=== PATIENT | female | born 1955 | race Caucasian/White ===

== ENCOUNTER 2019-06-06 17:46 | Inpatient (IN) | payer MEDICARE ==
[~2019-06-06] VITALS: Ht 160 cm; Wt 127.0 kg
[~2019-06-06 17:46] MED LIST: ACET325 PO; ACET500 PO; ACID REDUCER 1150 MG PO; AMBIEN; ASCO500; ASCO500 PO; Acidophilus La100 GM PO; Advil200 M1; Aldactone50 MG PO; Ambien5 MG PO; B Complex #11 EACH PO; BUDE10.22 INH; CALCA500CH PO; CALCIUM PO; CARB200 PO; CARB200ER; CARB200ER PO; CHOL10002 PO; CLON.1 PO; CREON DR 3,0001 EACH PO; CYCL10 PO; Culturelle1 CAP; DIPATR PO; ERGO400 PO; ESCI10; Eye Allergy Rel15 ML BOTHEYES; FISH1000 PO; FLONASE ALLERG9.9 ML; FURO20; FURO20 PO; FURO40; Flonase 0.05% N16 GM; HYDACE5 PO; HYDMOR2 PO; IBUP200; IBUP400; IBUP400 PO; IBUP800 PO; Inderal 20 mg T20 MG PO; KEPPRA250 MG PO; LASIX; LAVAP17G PO; LEVE500 PO; LISI20; LISI20 PO; LOSA25 PO; LOSA50 PO; MAGGLU250 PO; MORP15ER; MORP15ER PO; MULVITA; MULVITMIND PO; Magnesium500 M1 PO; Magnesium500 MG PO; Multivitamin1 EAC1 PO; NADO20; NADO20 PO; NADOL PO; NADOLOL; NADOLOL PO; Natural Vita400 UNIT PO; OMEP20ER PO; OXYACE5T PO; OXYC5; PHAZYME250 MG PO; PHENY100ER PO; POTASSIUM CHLORIDE PO; POTCHL10ER PO; POTCHL20ER PO; PREG75 PO; PROBIOTIC1 EAC1 PO; PROM25; PROM25 PO; Prinivil10 MG PO; RANI150 PO; Refresh Eye Dr1 EACH BOTHEYES; SIMETHICONE; SODCHL.65S; SODCHL1 PO; SPIR25; SPIR25 PO; SPIR50; SPIR50 PO; TEGRETOL; THIA100; TRAZ100 PO; TRAZ50 PO; TRAZONE; VITAMIN B12 PO; VITAMIN E PO; ZOLP10 PO; ZOLP5 PO
[2019-06-06 18:48] LABS: BASOPHILS ABSOLUTE AUTO 0.03 K/mm3 (0.00-0.23); BASOPHILS PERCENT AUTO 0 % (0-2); EOSINOPHILS ABSOLUTE AUTO 0.19 K/mm3 (0.00-0.68); EOSINOPHILS PERCENT AUTO 3 % (0-6); Hematocrit 22.9 % (33.0-51.0); Hemoglobin 7.4 g/dL (11.5-16.0); IMMATURE GRAN ABSOLUTE AUTO 0.02 K/mm3 (0.00-0.10); IMMATURE GRAN PERCENT AUTO 0 % (0-1); LYMPHOCYTES ABSOLUTE AUTO 2.31 K/mm3 (0.84-5.20); LYMPHOCYTES PERCENT AUTO 31 % (21-46); MONOCYTES ABSOLUTE AUTO 1.62 K/mm3 (0.16-1.47); MONOCYTES PERCENT AUTO 22 % (4-13); Mean Corpuscular HGB 31.9 pg (26.0-34.0); Mean Corpuscular HGB Conc 32.3 g/dL (31.5-36.5); Mean Corpuscular Volume 99 fL (80-100); NEUTROPHILS ABSOLUTE AUTO 3.26 K/mm3 (1.96-9.15); NEUTROPHILS PERCENT AUTO 44 % (41-73); NRBC ABSOLUTE 0.03 K/mm3 (0.00-0.02); NRBC Auto 0.4 /100 WBC (0.0-0.2); Platelet Count 162 K/mm3 (150-400); RDW Coefficient Variation 16.8 % (11.7-14.2); RDW Standard Deviation 59.9 fL (35.1-46.3); Red Blood Cell Count 2.32 M/mm3 (3.80-5.20); White Blood Cell Count 7.43 K/mm3 (4.00-11.30)
[2019-06-06 18:59] LABS: Albumin, Blood 2.6 g/dL (3.4-5.0); Albumin/Globulin Ratio 0.8 (0.8-1.8); Bilirubin, Total 1.2 mg/dL (0.1-1.0); Bun/Creatinine Ratio 26.7 (12.0-20.0); Calcium, Blood 8.5 mg/dL (8.5-10.1); Creatinine, Blood 1.01 mg/dL (0.40-1.00); Globulin, Blood 3.1 g/dL (2.2-4.0); Potassium, Blood 3.3 mmol/L (3.5-5.5); Total Protein, Blood 5.7 g/dL (6.4-8.2)
--- NOTE | 2019-06-07 01:13 | NUR ---
PT ADMITTED TO THE THE ROOM. BLOOD INFUSING IN LEFT AC. RESP UNLABORED, VSS. PT IS A&O X4, THE PT IS VERY ANXIOUS, DEMANDING AND INPATIENT. REASSURANCE AND EDUCATION ABOUT ADMISION PROCESS AND CURRENT ILLNESS WAS PROVIDED. PT'S IS AT THE BEDSIDE. LINENS WERE PROVIDED FOR HIM TO SLEEP AT THE BEDSIDE. PT CONTINUES TO C/O ABD PAIN. HOSPITALIST WILL BE NOTIFIED. CALL LIGHT IN REACH.
[2019-06-07 06:23] LABS: BASOPHILS ABSOLUTE AUTO 0.04 K/mm3 (0.00-0.23); BASOPHILS PERCENT AUTO 1 % (0-2); EOSINOPHILS ABSOLUTE AUTO 0.12 K/mm3 (0.00-0.68); EOSINOPHILS PERCENT AUTO 2 % (0-6); Hematocrit 26.5 % (33.0-51.0); Hemoglobin 8.5 g/dL (11.5-16.0); IMMATURE GRAN ABSOLUTE AUTO 0.02 K/mm3 (0.00-0.10); IMMATURE GRAN PERCENT AUTO 0 % (0-1); LYMPHOCYTES ABSOLUTE AUTO 1.67 K/mm3 (0.84-5.20); LYMPHOCYTES PERCENT AUTO 27 % (21-46); MONOCYTES ABSOLUTE AUTO 1.13 K/mm3 (0.16-1.47); MONOCYTES PERCENT AUTO 19 % (4-13); Mean Corpuscular HGB 31.4 pg (26.0-34.0); Mean Corpuscular HGB Conc 32.1 g/dL (31.5-36.5); Mean Corpuscular Volume 98 fL (80-100); Mean Platelet Volume 10.8 fL (9.1-12.4); NEUTROPHILS ABSOLUTE AUTO 3.14 K/mm3 (1.96-9.15); NEUTROPHILS PERCENT AUTO 51 % (41-73); NRBC ABSOLUTE 0.02 K/mm3 (0.00-0.02); NRBC Auto 0.3 /100 WBC (0.0-0.2); Platelet Count 124 K/mm3 (150-400); RDW Coefficient Variation 16.7 % (11.7-14.2); RDW Standard Deviation 58.7 fL (35.1-46.3); Red Blood Cell Count 2.71 M/mm3 (3.80-5.20); White Blood Cell Count 6.12 K/mm3 (4.00-11.30)
--- NOTE | 2019-06-07 06:36 | NUR ---
SUMMARY 1 UNIT PRBC INFUSED. PT DENIES ANY S/S OF TRANSFUSION REACTIONS. BP HAS INCREASED SLIGHTLY. PT CONTINUES TO BE A&O X4, ANXIOUS AND DEMANDING. PAIN MEDICATED WITH 25 MCG IV FENTANYL X2 PER PT REQUEST. PT DENIES NAUSEA. SHE CONTINUES TO PASS FLATUS. NS INFUSING @ 100 ML/HR. PT WAS PLACED ON 2 L O2 PER NC FOR O2 SATS AROUND 88% TO 92% DEPENDING ON PT'S ANXIETY LEVEL. REASSURANCE AND EDUCATION PROVIDED FREQUENTLY TO ASSIST IN CALMING PT. PT ADVISED TO CALL FOR ASSISTANCE PRIOR TO GETTING OOB. PT'S IS AT THE BEDSIDE, PT STATES HE HAS BEGINNING SIGNS OF DEMENTIA AND REQUIRES LOT'S OF CARE. PT IS ORDERING STAFF TO CARE FOR HIM. CALL LIGHT IS IN REACH. WCTM AND REPORT TO DAY RN
[2019-06-07 06:43] LABS: Anion Gap 6 mmol/L (6-16); Blood Urea Nitrogen 27 mg/dL (8-24); Bun/Creatinine Ratio 28.8 (12.0-20.0); CO2, Blood 26 mmol/L (21-32); Chloride, Blood 107 mmol/L (98-108); Creatinine, Blood 0.94 mg/dL (0.40-1.00); Glomerular Filtration Rate >60 (60-); Glucose, Blood 154 mg/dL (70-99); Potassium, Blood 3.8 mmol/L (3.5-5.5); Sodium, Blood 139 mmol/L (136-145)
--- NOTE | 2019-06-07 08:00 | NUR ---
PT IS VERY ANXIOUS, STATES SHE CAN'T BREATH, STATES SHE IS PANIKING, RT IN ROOM WE WERE ABLE TO CALM HER, SHE IS CURRENTLY ON 5 LITERS 02 VIA N/C, LUNGS ARE CLEAR IN UPPER [place], DIM IN BASES, RESP EVEN AND UNLABORED AFTER SHE CALMED DOWN, NO COUGH NOTED, HRR, MONITOR IN PLACE RUNNING SR PER MONITOR, SEE STRIP, TRACE EDEMA NOTED TO B/L LE, PPP FAINT, CAP REFILL <3 SEC, VS STABLE, AFEBRILE, IV SITES ARE CLEAR AND PATENT, TO LEFT AC AND LEFT FA, TURNED NS TO TKO ORDERED, BTX4, ABD FLAT SOFT TENDER IN EPIGASTRIC AREA, HAS BEEN RECIEVING FENTANYL FOR PAIN MGMT, VOIDS WITHOUT DIFF, SKIN C/W/D/, LEEANN YUSUF, CALL LIGHT IN REACH. CALLED IN GI CONSULT TO ANSWERING SERVICE AT 0730.
--- NOTE | 2019-06-07 14:10 | NUR ---
INTO ICU 15 FOR PROCEDURE. ASSESSMENT STARTED
[2019-06-07 14:32] LABS: Hematocrit 26.3 % (33.0-51.0); Hemoglobin 8.6 g/dL (11.5-16.0)
--- NOTE | 2019-06-07 15:33 | NUR ---
PT HAD AN EGD, NO SOURCE OF BLEEDING FOUND, PT WAKING UP, SPOUCE SITTING OUTSIDE HER ROOM READING A PAPER, HAS WONDERED A FEW TIMES AND COULD NOT FIND HIS WAY BACK. VS A BIT LOW BUT IS STILL WAKING. CONTINUES ON 5 LITERS 02 VIA N/C. CALL LIGHT IN REACH.
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
[2019-06-07 18:15] LABS: Hemoglobin 8.6 g/dL (11.5-16.0)
--- NOTE | 2019-06-07 23:52 | NUR ---
SANDOSTATIN RATE CHANGE RATE CHANGE TO 12.5 PER ORDERS AT 2257.
--- NOTE | 2019-06-08 02:28 | NUR ---
UPDATE Pt with second panic attack of the shift. Pt with severe anxiety, unable to calm self without direction from RN. Pt redirectable, follows directions. Pt instructed to deep breathe, think of calming places. Pt with HR increase to 160's per tele and unresolved with vagal stimulus by bearing down, unresolved with deep breathing. Pt states anxiety but denies lightheadedness, is normotensive, alert and oriented. Dr. Gaming called and ativan IV 0.5mg once ordered per MD. Medication given per orders, continuing to monitor HR. pt currently with eyes closed, breathing easy and unlabored, cool washcloth over her eyes/forehead, in bed.
[2019-06-08 03:51] LABS: BASOPHILS ABSOLUTE AUTO 0.03 K/mm3 (0.00-0.23); BASOPHILS PERCENT AUTO 0 % (0-2); EOSINOPHILS ABSOLUTE AUTO 0.02 K/mm3 (0.00-0.68); EOSINOPHILS PERCENT AUTO 0 % (0-6); Hematocrit 26.9 % (33.0-51.0); Hemoglobin 8.5 g/dL (11.5-16.0); IMMATURE GRAN ABSOLUTE AUTO 0.02 K/mm3 (0.00-0.10); IMMATURE GRAN PERCENT AUTO 0 % (0-1); LYMPHOCYTES PERCENT AUTO 21 % (21-46); MONOCYTES ABSOLUTE AUTO 1.28 K/mm3 (0.16-1.47); MONOCYTES PERCENT AUTO 17 % (4-13); Mean Corpuscular HGB 30.8 pg (26.0-34.0); Mean Corpuscular HGB Conc 31.6 g/dL (31.5-36.5); Mean Corpuscular Volume 98 fL (80-100); Mean Platelet Volume 10.4 fL (9.1-12.4); NEUTROPHILS ABSOLUTE AUTO 4.78 K/mm3 (1.96-9.15); NEUTROPHILS PERCENT AUTO 62 % (41-73); NRBC ABSOLUTE 0.04 K/mm3 (0.00-0.02); NRBC Auto 0.5 /100 WBC (0.0-0.2); Platelet Count 138 K/mm3 (150-400); RDW Coefficient Variation 17.5 % (11.7-14.2); RDW Standard Deviation 62.6 fL (35.1-46.3); Red Blood Cell Count 2.76 M/mm3 (3.80-5.20); White Blood Cell Count 7.73 K/mm3 (4.00-11.30)
[2019-06-08 04:09] LABS: Bun/Creatinine Ratio 22.2 (12.0-20.0); Calcium, Blood 8.1 mg/dL (8.5-10.1); Creatinine, Blood 1.35 mg/dL (0.40-1.00); Potassium, Blood 4.7 mmol/L (3.5-5.5)
--- NOTE | 2019-06-08 05:15 | NUR ---
Shift Summary Pt anxious this shift. pt with two panic attack like episodes where pt hyperventilates, reaching out in front of her with panic look, eyes wide, breathing labored, states fear-filled phrases such as "I can't do this" and "my head is a scary place right now". Pt also makes comments directed at pt such as "get him out of here" and "i can't deal with him right now." when pt made these statements, the pt's was sleeping in recliner next to pt. Pt's awoke to the commotion with confusion. This RN spent time calming both the pt and the pt's during this shift. Pt is calmed by RN holding her hand, instructing how to deep breathe, and to breathe deep with pt. Pt is also calmed with fan blowing lightly on her, cool washclothes placed to her face, chest, and neck as she requests. Pt with one episode of sinus tachycardia up to 160's. This episode occured during an anxiety attack and was resolved with 0.5 mg IV ativan per orders from MD Gaming. Otherwise, VSS, pt sleeping in short intervals. Pt up to bsc SBA with moderate assistance this shift d/t anxiety and [place], pt otherwise strong and stable on feet. Pt in no apparent sign of distress this shift apart from occasional anxiety attacks. See shift assessment for detailed shift assessment. Pt on 3L O2 to maintain saturations >95%; pt is baseline RA. Pt has expressed concern about the possibility of discharge d/t her anxiety. Pt states she usually does not experience anxiety like this. Will pass this along to day shift RN to bring up to MD. Will continue to monitor and update on further changes as they occur.
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
[2019-06-08] MEDS ORDERED: OMEP20ER PO (09:23)
[2019-06-08] MEDS ORDERED: PARO20 PO (09:24)
[2019-06-08 17:31] LABS: International Normalized Ratio 1.71; Prothrombin Time Results 17.3 Sec (9.7-11.5)
--- NOTE | 2019-06-08 18:48 | NUR ---
SHIFT SUMMARY. PT WAS BEING PREPARED FOR D/C HOME AFTER HOME O2 EVALUATION. DURING HOME O2 EVALUATION IT WAS NOTED THAT THE PT'S O2 DEMAND HAD INCREASED FROM RA AND PRN 2L NC TO 13 L HI FLOW AT 87%. PROVIDER WAS CALLED AND ORDERS OBTAINED FOR STAT CHEST CT SCAN, THIS WAS DONE (SEE IMAGING REPORT). D/C WAS CANCELED AT THIS TIME. PT'S VS HAVE BEEN STABLE, PT HAS BEEN STABLE ON 13L HI FLOW WITH O2 SATS 89-90%. PT HAS BEEN C/O OF SEVERE MUSCLE CRAMPING TO HER ARMS,LEGS AND HANDS. PROVIDER WAS NOTIFED. PT MEDICATED PER EMAR FOR PAIN. WILL CONTINUE TO MONITOR UNTIL REPORT IS GIVEN TO ONCOMING RN.
--- NOTE | 2019-06-08 22:15 | NUR ---
Assumed care of pt at approx 1900. Pt presents in bed, breathing labored, tachypneic, shallow breathes. Pt states "i am going to have another fit". This RN sat with pt, instructed deep breathing guided relaxation, attempted to distract pt from anxiety by speaking about pt's pets. Pt able to calm self down to breath less labored. See shift assessment for detailed systems assessment. At approx 2034, pt in apparent anxiety attack, grabbing at all lines and cords, taking off oxygen stating "get all this off me". This RN, again, sat with pt and attemped to redirect. Pt allowed this RN to place o2, tele, and oxygen monitoring back on. Pt continued in apparent anxiety, HR up to 170 per chief nuclear medicine technologist, breathing tachypneic and labored. Ativan 0.5 mg IV given per orders. at approx 2100 pt with HR back to 90. Pt sleeping at this time. Pt is able to use call light appropriately, makes needs known, SBA to BSC. No further events on tele other than the one noted above. Pt does state "glowing burining pain" in ABD. Pt states "it feels like gas". Pt able to have mild relief with reposition to left side. Will continue to monitor pain.
--- NOTE | 2019-06-09 02:43 | NUR ---
Update Pt with increased anxiety this morning. 0.5 mg ativan given per orders with little relief. Pt remains agitated, anxious, tachypneic. Pt with another run of tachycardia in 160's and one 11 beat run of asymoptomatic vtach. Currently, pt laying in bed, groining and moaning to herself, HR 110 with PAC and PVC's. Will continue monitoring.
--- NOTE | 2019-06-09 04:40 | NUR ---
Update At approx 0420 pt with increased anxiety, increasing o2 demand from 8L to 9L to maintain sats>90%. Pt with HR abrupting increased to 180 per biomedical instrument technician. Pt with labored breathing with anxiety. Dr Hurtado called and notified of condition of pt, 0.5mg ativan ordered for a one time; medication given IV per orders. Pt with resolved HR back to 110's, restlessness remains. Pt continues to thrash in bed, pull at oxygen. Pt is redirectable. Will continue monitoring.
--- NOTE | 2019-06-09 05:23 | NUR ---
Shift Summary Pt with restless night, multiple episodes of anxiety, SOB, and tachycardia. Pt given total of 1.5mg ativan this shift and 25mcg of fentanyl per orders with mild relief. See previous notes for detailed accounts of anxiety episodes. Lungs remain unchanged from initial shift assessment, pt required increased o2 from 8L to 9L this shift. Currently, pt resting in bed. Pt able to transfer SBA to BSC with minimal assistance, however when pt ambulates she becomes moderately dyspneic and anxiety increases. Call light in reach, clipped to sheets. Pt uses call light appropriately but when pt becomes increasingly anxious, she yells out instead of uses call light. VSS, no further events on tele apart from the noted episodes of tachycardia and the 11 beat run of VTACH. No BM this shift. Pt continues to complain of pain in stomach, states "It's a gas bubble that won't move" Bowel tones + x4. Will continue to monitor and provide care until care is assumed by day RN.
[2019-06-09 10:42] LABS: Automated BF RBC Count 0.012 M/mm3 (0-0); Automated BF WBC Count 0.384 K/mm3 (0-999); Body Fluid WBC Count 384 /mm3 (0-999); RBC Count, Body Fluid 12000 /mm3 (0-0)
[2019-06-09 10:44] LABS: Appearance, Body Fluid Cloudy (Clear)
[2019-06-09 10:54] LABS: Albumin, Body Fluid 0.6 g/dL; Glucose, Body Fluid 181 mg/dL; Lactate Dehydrogenase, Body Fl 80 U/L; Protein, Body Fluid 1.2 g/dL; Triglycerides, Body Fluid 59 mg/dL
[2019-06-09 11:20] LABS: Total Cell Count, Body Fluid 100
--- NOTE | 2019-06-09 18:10 | NUR ---
SHIFT SUMMARY PT ALERT AND ORIENTED. PT ANXIOUS THROUGHOUT SHIFT. 02 SATS REMAIN ABOVE 90% AT REST WITH 8L NC. PT DESATURATES QUICKLY WITH ANY ACTIVITY. PT HAD THORACENTESIS THIS SHIFT AND COMPLAINED OF PAIN AT SITE THAT WAS RELIEVED WITH MEDICATION ADMINISTRATION. PT REFUSED HER MEALS THIS SHIFT. WILL CONTINUE TO MONITOR AND REPORT TO ONCOMING RN. CALL LIGHT IN REACH.
[2019-06-10 03:57] LABS: BASOPHILS ABSOLUTE AUTO 0.02 K/mm3 (0.00-0.23); BASOPHILS PERCENT AUTO 0 % (0-2); EOSINOPHILS ABSOLUTE AUTO 0.02 K/mm3 (0.00-0.68); EOSINOPHILS PERCENT AUTO 0 % (0-6); Hematocrit 24.9 % (33.0-51.0); Hemoglobin 7.9 g/dL (11.5-16.0); IMMATURE GRAN ABSOLUTE AUTO 0.06 K/mm3 (0.00-0.10); IMMATURE GRAN PERCENT AUTO 1 % (0-1); LYMPHOCYTES ABSOLUTE AUTO 1.48 K/mm3 (0.84-5.20); LYMPHOCYTES PERCENT AUTO 12 % (21-46); MONOCYTES ABSOLUTE AUTO 1.59 K/mm3 (0.16-1.47); MONOCYTES PERCENT AUTO 13 % (4-13); Mean Corpuscular HGB 30.7 pg (26.0-34.0); Mean Corpuscular HGB Conc 31.7 g/dL (31.5-36.5); Mean Corpuscular Volume 97 fL (80-100); Mean Platelet Volume 11.1 fL (9.1-12.4); NEUTROPHILS ABSOLUTE AUTO 9.29 K/mm3 (1.96-9.15); NEUTROPHILS PERCENT AUTO 74 % (41-73); NRBC ABSOLUTE 0.05 K/mm3 (0.00-0.02); NRBC Auto 0.4 /100 WBC (0.0-0.2); Platelet Count 91 K/mm3 (150-400); RDW Coefficient Variation 17.8 % (11.7-14.2); RDW Standard Deviation 62.4 fL (35.1-46.3); Red Blood Cell Count 2.57 M/mm3 (3.80-5.20); White Blood Cell Count 12.46 K/mm3 (4.00-11.30)
[2019-06-10 04:13] LABS: Bun/Creatinine Ratio 29.9 (12.0-20.0); Calcium, Blood 8.4 mg/dL (8.5-10.1); Creatinine, Blood 1.17 mg/dL (0.40-1.00); Potassium, Blood 4.2 mmol/L (3.5-5.5)
--- NOTE | 2019-06-10 04:46 | NUR ---
HBG DROP FROM 8.[address] ZAVALA CALLED AND NOTIFIED OF VALUE, ORDERS RECIEVED TO RECHECK H&H AT 1000. WILL RECHECK H&H AT 1000 PER ORDERS.
--- NOTE | 2019-06-10 06:12 | NUR ---
Shift Summary VSS this shift. Pt able to titrate from 8L to 3L via NC with o2 stable >95%. Pt sleeping this shift without need of ativan to calm anxiety. No ativan or fentanyl given this shift, pt reported no pain, appears resting comfortably, sleeping much of the shift. No breathing easy and unlabored, appears in no sign of distress. Alert and oriented. Pt with two episodes of sinus tachycardia up to 160 per agent telegrapher; pt asymptomatic and resolved within 5 minutes. No medications needed to aid in resolution of HR this shift. Pt SBA to BSC. DUNBAR. No changes from initial shift assessment. CXR completed this AM. Will continue to monitor and update as needed.
[2019-06-10 10:13] LABS: Hematocrit 23.8 % (33.0-51.0); Hemoglobin 7.3 g/dL (11.5-16.0)
--- NOTE | 2019-06-10 18:28 | NUR ---
ORDERS FOR DISCHARGE PROVIDED AND TO BE DONE AFTER TRANSFUSION OF 1U PRBC. TRANSFUSION COMPLETE. DISCHARGE INSTRUCTIONS PROVIDED. PT EDUCATED ON NEW MEDICATIONS AND MEDICATION CHANGES. ALL QUESTIONS ANSWERED. PT REQUESTING TAXI FOR RIDE HOME. PT AWAITING RIDE.
== END 2019-06-10 18:45 | disposition home or self-care (01) | DRG 368 ==
LOC: ER 17:46 → PCU 22:43 → ER 22:43 → ICUW 22:43 → PCU 23:53 → ICUW 06-07 00:05 → PCU 06-07 06:06 → ICUW 06-07 06:06 → PCU 06-07 15:55 → ICUW 06-07 15:55 → PCU 06-09 14:38
PROVIDERS: Emergency Medicine; Internal Medicine; Internal Medicine Gastroenterology; ADMIT Hospitalist
PROC: 0DJ08ZZ Inspection of Upper Intestinal Tract, Via Natural or Artificial Opening Endoscopic (ICD-10-PCS; principal; 2019-06-07 14:30)
DX: I85.01 Esophageal varices with bleeding (principal); J96.01 Acute respiratory failure with hypoxia; K86.1 Other chronic pancreatitis; Z68.42 Body mass index [BMI] 45.0-49.9, adult; J90 Pleural effusion, not elsewhere classified; D62 Acute posthemorrhagic anemia; K76.6 Portal hypertension; F17.210 Nicotine dependence, cigarettes, uncomplicated; K26.4 Chronic or unspecified duodenal ulcer with hemorrhage; K70.30 Alcoholic cirrhosis of liver without ascites; K21.9 Gastro-esophageal reflux disease without esophagitis; E11.9 Type 2 diabetes mellitus without complications; G40.909 Epilepsy, unspecified, not intractable, without status epilepticus; F41.8 Other specified anxiety disorders; B19.20 Unspecified viral hepatitis C without hepatic coma; E66.9 Obesity, unspecified; I95.9 Hypotension, unspecified; E87.6 Hypokalemia; D69.6 Thrombocytopenia, unspecified; Z99.81 Dependence on supplemental oxygen
CPT/HCPCS: 32555; 36415; 36430; 71045; 71046; 71260; 80048; 80053; 82042; 82272; 82945; 82947; 83615; 83690; 84157; 84478; 84484; 85014; 85018; 85025; 85610; 85730; 86850; 86870; 86900; 86901; 86902; 86922; 87070; 87205; 88108; 88305; 89051; 93005; 93010; 94761; 94762; 96361; 96374; 99285-25; A9270-GY; C9113; J0171; J1430; J2060; J2354; J2370; J2704; J3010; J7030; J7050; J7120; P9016; Q9967

== ENCOUNTER 2019-06-14 20:31 | Inpatient (IN) | payer MEDICARE ==
[~2019-06-14] VITALS: Ht 160 cm; Wt 180.0 kg
[~2019-06-14 20:31] MED LIST changes: +PARO20 PO
[2019-06-14] MEDS ORDERED: CREON DR 3,0001 EACH PO (21:27)
[2019-06-14 21:35] LABS: BASOPHILS ABSOLUTE AUTO 0.04 K/mm3 (0.00-0.23); BASOPHILS PERCENT AUTO 1 % (0-2); EOSINOPHILS ABSOLUTE AUTO 0.05 K/mm3 (0.00-0.68); EOSINOPHILS PERCENT AUTO 1 % (0-6); Hematocrit 35.1 % (33.0-51.0); Hemoglobin 11.3 g/dL (11.5-16.0); IMMATURE GRAN ABSOLUTE AUTO 0.12 K/mm3 (0.00-0.10); IMMATURE GRAN PERCENT AUTO 1 % (0-1); LYMPHOCYTES ABSOLUTE AUTO 1.58 K/mm3 (0.84-5.20); LYMPHOCYTES PERCENT AUTO 18 % (21-46); MONOCYTES ABSOLUTE AUTO 0.91 K/mm3 (0.16-1.47); MONOCYTES PERCENT AUTO 10 % (4-13); Mean Corpuscular HGB Conc 32.2 g/dL (31.5-36.5); Mean Platelet Volume 11.8 fL (9.1-12.4); NEUTROPHILS ABSOLUTE AUTO 6.02 K/mm3 (1.96-9.15); NEUTROPHILS PERCENT AUTO 69 % (41-73); NRBC ABSOLUTE 0.08 K/mm3 (0.00-0.02); NRBC Auto 0.9 /100 WBC (0.0-0.2); Platelet Count 120 K/mm3 (150-400); RDW Coefficient Variation 17.8 % (11.7-14.2); White Blood Cell Count 8.72 K/mm3 (4.00-11.30)
[2019-06-14 21:36] LABS: Mean Corpuscular Volume 90 fL (80-100)
[2019-06-14 22:53] LABS: Albumin, Blood 2.9 g/dL (3.4-5.0); Albumin/Globulin Ratio 0.8 (0.8-1.8); Bilirubin, Total 2.3 mg/dL (0.1-1.0); Bun/Creatinine Ratio 22.1 (12.0-20.0); Calcium, Blood 9.2 mg/dL (8.5-10.1); Creatinine, Blood 2.13 mg/dL (0.40-1.00); Globulin, Blood 3.8 g/dL (2.2-4.0); International Normalized Ratio 1.99; Potassium, Blood 4.9 mmol/L (3.5-5.5); Prothrombin Time Results 19.8 Sec (9.7-11.5); Total Protein, Blood 6.7 g/dL (6.4-8.2)
[2019-06-15 03:55] LABS: Calcium, Ionized (POC) 1.17 mmol/L (1.10-1.46); Chloride (POC) 108 mmol/L (98-108); Creatinine (POC) 3.1 mg/dL (0.6-1.0); Glucose (ISTAT POC) 146 mg/dL (70-99); Hemoglobin (POC) 11.2 g/dL (12.0-16.0); Potassium (POC) 6.3 mmol/L (3.5-5.5); Sodium (POC) 137 mmol/L (135-148); Total CO2 (POC) 17 mmol/L (21-32)
--- NOTE | 2019-06-15 04:01 | NUR ---
RT RESPONDED TO CODE BLUE CALLED OVERHEAD. RT BEGAN BAGGING, PT WAS INTUBATED BY DR. MAYERS WITH 7.5 ETT, SECURED AT 24 CM AT BOTTOM LIP. BILAT BS AUSCULTATED AND POSITIVE COLOR CHANGE NOTED ON CAPNOMETER. RT ASSISTED WITH CHEST COMPRESSIONS AND VENTILATING WITH AMBU BAG THROUGHOUT CODE. ETT LEFT IN PLACE AFTER TIME OF CALLED.
--- NOTE | 2019-06-15 04:06 | NUR ---
PT PRESSES CALL LIGHT AND REQUESTS CNAs TO HELP HER VOID. PT PLACED ON BED VASQUEZ BY CNAs. AT THIS TIME, THIS RN RECIEVES A CALL FROM [employer]ist MARGA ROGERS THAT THE HR IS DROPPING TO THE 20s. AT 0326, PT HR IS ASYSTOLE. RN CALLS A CODE BLUE, ENTERS TO FIND PT WITH CNAs PULSELESS. CPR IS INITIATED BY THIS RN. CODE TEAM ARRIVES, AND CPR IS CONTINUED. TIME OF IS PRONOUNCED AT 0343.
--- NOTE | 2019-06-15 04:17 | NUR ---
LATE ENTRY FOR 06/15 0033 PT ARRIVES TO UNIT VIA STRETCHER, TRANSFERRED VIA SLIDE SHEET. PT IS ADMITTED FOR JESSENIA ON CKD. A&O X 4, VSS. ADMISSION COMPLETED BY PT AND THIS RN. ON 3L VIA NC. PROTONIX DRIP RUNNING @ 10 ML/HR. TELE PLACED, NSR @ 60 BPM. ASSUMING CARE OF PT.
--- NOTE | 2019-06-15 04:29 | NUR ---
FAMILY NOTIFIED @ 8940 BY THIS RN. FAMILY REQUESTS TO COME SAY THEIR GOODBYES.
--- NOTE | 2019-06-19 19:26 | NUR ---
IMM MAILED TO PATIENT
== END 2019-06-15 03:43 | DRG 683 ==
LOC: ER 20:31 → MEDS 20:32
PROVIDERS: Emergency Medicine; ADMIT Family Medicine
PROC: 5A12012 Performance of Cardiac Output, Single, Manual (ICD-10-PCS; principal; 2019-06-15)
PROC: 0BH17EZ Insertion of Endotracheal Airway into Trachea, Via Natural or Artificial Opening (ICD-10-PCS; 2019-06-15)
DX: N17.9 Acute kidney failure, unspecified (principal); K86.1 Other chronic pancreatitis; E86.0 Dehydration; I46.9 Cardiac arrest, cause unspecified; K70.30 Alcoholic cirrhosis of liver without ascites; I10 Essential (primary) hypertension; F17.210 Nicotine dependence, cigarettes, uncomplicated; Z88.1 Allergy status to other antibiotic agents; Z91.040 Latex allergy status
CPT/HCPCS: 31500; 36415; 80047; 80053; 83690; 85014; 85025; 85610; 92950; 96365; 96366; 96368; 96375; 99285-25; C9113; G0378; J1170; J1815; J2354; J2405; J7030; J7050